=== PATIENT | male | born 1965 | race Caucasian/White ===

== ENCOUNTER 2020-04-19 01:29 | Emergency (ER) | payer SELFPAY ==
[~2020-04-19] VITALS: Ht 172.7 cm; Wt 80.0 kg
--- NOTE | 2020-04-19 01:47 | NUR ---
PATIENT ESCORTED BY POLICE TO ED ROOM. PATIENT SPEAKING ILLOGICAL SENTENCES AND RAPID SPEECH WITH SOME UNKNOWN WORDS. HE STATES "ZAINA MOYA IS MY COUSIN". AND STATES HE IS RELATED TO MANY OTHER CELEBRITIES. HE ANSWERS SOME QUESTIONS WITH INTERMITTENT UNINTELLIGBLE WORDS. PATIENT REPEATS "THIS COVID IS A JOKE" HE THROWS HIS MASK ON THE BED. PATIENT IS COOPERATIVE AT THIS TIME. DENIES SI AT THIS VERY MOMENT. TELLS ME THAT "YOU CAN CALL THE [facility] AND GET ALL MY RECORDS. A LOT OF THE PSYCHIATRIC MEDICATION MADE ME REALLY SICK AND I CANT HAVE ANY OF THAT. I DONT NEED THE MEDICATIONS THEY WERE GIVING ME BEFORE. I WONT TAKE ANY MEDICATIONS BECAUSE THEY ALL HAVE SIDE EFFECTS AND THATS AGAINST THE LAW". 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 PATIENT DECLINES PROVIDING URINE SAMPLE AT THIS TIME "I DONT HAVE ENOUGH IN ME". CALL [facility] IN REACH. STEADY GAIT WITH AMBULATION. WARM BLANKETS PROVIDED. WILL CONTINUE TO MONITOR. NEEDING SUPERVISION AND WILL MOVE PATIENT TO SUPERVISED ROOM SHORTLY
--- NOTE | 2020-04-19 02:00 | NUR ---
PATIENT MOVED TO SUPERVISED ROOM. 1:1 SITTER IN VIEW OF PATIENT. PATIENT TALKING OUT LOUD TO SELF AND HAVING VISUAL HALLUCINATIONS NOTED BY WAVING HANDS UP IN THE AIR AND "SWIRLING SOMETHING AROUND IN THE AIR". WHEN I PERFORMED PHYSICAL ASSESSMENT AND AUSCULTATED PATIENT'S LUNGS, HE ASKED "DID YOU HEAR ALL OF THEM IN THERE?". I ASKED HIM WHAT HE MEANT AND HE RESPONDED "ALL THE BUGS AND ( INCOMPREHENIBLE ILLOGICAL WORDS) IN THERE. THEY ARE TICKING". I REASSURED PATIENT THAT I DID NOT HEAR THESE THINGS. ALL PERSONAL ITEMS INCLUDING CLOTHING PLACED IN BAG AND IN LOCKED STORAGE CABINET IN ER. PATIENT PLACED IN HOSPITAL GOWN.
[2020-04-19 02:21] LABS: BASOPHILS % (AUTO) 2 % (0-1); EOSINOPHILS % (AUTO) 0 % (1-7); LYMPHOCYTES % (AUTO) 15 % (22-44); MEAN CORPUSCULAR HEMOGLOBIN 30.5 pg (27.5-34.5); MEAN CORPUSCULAR HGB CONC 34.3 g/dL (33.2-36.2); MEAN PLATELET VOLUME 9.6 fL (7.4-10.4); MONOCYTES % (AUTO) 8 % (2-9); NEUTROPHILS % (AUTO) 74 % (42-75); PLATELET COUNT 177 x10^3/uL (130-400); RED BLOOD COUNT 4.88 x10^6/uL (4.38-5.82); RED CELL DISTRIBUTION WIDTH 13.9 % (9.4-14.8)
[2020-04-19 02:28] LABS: ALANINE AMINOTRANSFERASE 296 U/L (12-78); ALBUMIN 4.2 g/dL (3.4-5.0); ANION GAP 5 mmol/L (5-15); CHLORIDE 108 mmol/L (98-107); CREATININE 0.99 mg/dL (0.7-1.3)
[2020-04-19 02:29] LABS: SALICYLATE LEVEL < 1.7 mg/dL (2.8-20.0)
[2020-04-19 02:30] LABS: ALKALINE PHOSPHATASE 83 U/L (45-117); BILIRUBIN,TOTAL 0.8 mg/dL (0.2-1.0); TOTAL PROTEIN 8.1 g/dL (6.4-8.2)
--- NOTE | 2020-04-19 02:57 | NUR ---
PATIENT REQUESTED WATER AFTER I ASKED IF HE COULD PLEASE PROVIDE URINE SAMPLE. WATER PROVIDED
[2020-04-19 02:58] LABS: MD SCAN
[2020-04-19] MEDS ORDERED: ZIPRASIDONE 20 MG INJ IM ONE ×3 (03:08→13:30)
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
--- NOTE | 2020-04-19 04:10 | NUR ---
PATIENT HAD NO ALLERGIC REACTION TO [facility]. I WILL TAKE THIS OUT OF HIS ALLERGIES HE REPORTED TO ME. PATIENT NOT OF SOUND MIND ON ARRIVAL TO ER BUT SINCE PATIENT HAD NOT BEEN TO [facility], ALLERGIES ENTERED PATIENT REPORTED WITH VAGUE EXPLANATION. PATIENT RESTING IN BED WITH BLANKETS OVER BODY AND COVERING FACE. 1:1 SITTING IN VIEW OF PATIENT. PATIENT REMAINS CALM IN ROOM. NO LONGER YELLING/TALKING OUTLOUD TO SELF. SAFETY MAINTAINED. WILL CONTINUE TO MONITOR
--- NOTE | 2020-04-19 05:11 | NUR ---
PATIENT RESTING IN BED IN NAD AND 1:1 SITTER IN VIEW OF PATIENT FOR SAFETY. WILL CONTINUE TO MONITOR.
--- NOTE | 2020-04-19 06:11 | NUR ---
THROUGHPUT RN: PT PACKET FAXED TO [facility] AT THIS TIME.
--- NOTE | 2020-04-19 06:46 | NUR ---
PATIENT WAS ASKED FOR URINE SAMPLE AND PATIENT POLITE AND COOPERATIVE WITH THIS REQUEST. UA AND UTOX SENT TO LAB VIA TUBE SYSTEM. RESTING IN BED. EXTRA WARM BLANKET PROVIDED TO PATIENT. SAFETY MAINTAINED. 1:1 SITTER IN VIEW OF PATIENT FOR SAFETY. WILL CONTINUE TO MONITOR.
--- NOTE | 2020-04-19 07:03 | NUR ---
REPORT GIVEN TO GRIS STEVENSON
--- NOTE | 2020-04-19 07:14 | NUR ---
PT RESTING ON ED GURNEY ON HIS SIDE WITH EYES CLOSED. EVEN RISE AND FALL OF CHEST NOTED. NAD. ALL NEEDS MET AT THIS TIME. ROOM SECURED. PT IN VIEW OF SITTER OUTSIDE ROOM.
[2020-04-19 07:53] LABS: MICROSCOPIC NOT IND
[2020-04-19 08:12] LABS: AMPHETAMINE SCREEN, URINE Negative (Negative); BARBITURATE SCREEN, URINE Negative (Negative); BENZODIAZEPINE SCREEN, URINE Negative (Negative); CANNABINOID SCREEN, URINE Negative (Negative); COCAINE SCREEN, URINE Negative (Negative); METHADONE SCREEN, URINE Negative (Negative); OPIATE SCREEN, URINE Negative (Negative)
[2020-04-19 08:45] VITALS: BP 105/69
--- NOTE | 2020-04-19 08:49 | NUR ---
PT BREAKFAST DELIVERED. PT VSS. PT DENIES ANY PHYSICAL COMPLAINT. PT COOPERATIVE AND POLITE.
--- NOTE | 2020-04-19 12:57 | NUR ---
LUNCH TRAY DELIVERED. NAD. ALL NEEDS MET AT THIS TIME.
== END 2020-04-19 15:46 ==
LOC: ED 01:48
DX: F20.0 Paranoid schizophrenia (principal); R45.851 Suicidal ideations; Z88.0 Allergy status to penicillin
CPT/HCPCS: 36415; 80053; 80299; 80307; 80320; 80329; 81003; 85025; 99285; J3486; G0480

== ENCOUNTER 2020-05-11 16:46 | Emergency (ER) | payer SELFPAY ==
[~2020-05-11] VITALS: Ht 172.7 cm; Wt 125.0 kg
--- NOTE | 2020-05-11 16:56 | NUR ---
PATIENT BIB EMS WITH CHIEF C/O DEPRESSION, BUT NO PLAN OR ATTEMPT. PATIENT DENIES ETOH OR DRUG USE TODAY, REPORTS TO EMS THAT HE HAS NOT EATEN OR DRANK X2 DAYS. BLOOD GLUCOSE EN ROUTE 116, VSS EN ROUTE PER EMS. UPON ASSESSMENT PATIENT DENIES SI, VSS, BELONINGS TAKEN AND LOCKED IN CABINET, PATIENT IS RAMBLING ABOUT MULTIPLE THINGS, GOES OFF ON TANGENTS.
--- NOTE | 2020-05-11 17:27 | NUR ---
RECEIVED REPORT FROM GRAHAM VASQUEZ. PT RESTING ON GURTRACY. NADN. PERSONAL BELONGINGS (1 OF 1) PLACED IN SECURE LOCKER. ROOM PARTIALLY SECURED PT REMAINS ON MONITORS. SITTER AT BEDSIDE.
--- NOTE | 2020-05-11 17:42 | NUR ---
PT PROVIDED W/ SANDWICH.
[2020-05-11 18:01] VITALS: BP 120/57
--- NOTE | 2020-05-11 18:02 | NUR ---
PT CONTINUES TO DENY SI/HI. PT PROVIDED W/ PERSONAL BELONGINGS.
--- NOTE | 2020-05-11 18:15 | NUR ---
PT REFUSING TO ET DRESSED FOR DISCHARGE. SECURITY BROUGHT TO BEDSIDE FOR ASSISTANCE IN GETTING PT DRESSED. PROVIDED W/ BUS PASS.
== END 2020-05-11 18:30 | disposition home or self-care (01) ==
LOC: ED 18:00
DX: F20.89 Other schizophrenia (principal); M79.10 Myalgia, unspecified site
CPT/HCPCS: 99283

== ENCOUNTER 2020-11-10 21:54 | Emergency (ER) | payer MEDICARE, MEDICAID ==
[~2020-11-10] VITALS: Ht 167.6 cm; Wt 80.0 kg
[2020-11-10 22:20] VITALS: BP 114/60
--- NOTE | 2020-11-10 22:34 | NUR ---
DC EDUCATION PROVIDED, PT DEMONSTRATES UNDERSTANDING. PT AMBULATED STEAIDLY TO DC W RN. PROVIDED TAXI VOUCHER FOR SAFE DC TO [facility]
== END 2020-11-10 22:35 | disposition home or self-care (01) ==
LOC: ED 22:29
DX: Z00.00 Encounter for general adult medical examination without abnormal findings (principal); Z72.9 Problem related to lifestyle, unspecified; F17.210 Nicotine dependence, cigarettes, uncomplicated
CPT/HCPCS: 99406

== ENCOUNTER 2020-11-15 17:22 | Emergency (ER) | payer MEDICARE, MEDICAID ==
[~2020-11-15] VITALS: Ht 172.7 cm; Wt 86.8 kg
--- NOTE | 2020-11-15 17:33 | NUR ---
SKILLS TRAINER: [id number]
[2020-11-15 17:38] VITALS: BP 131/97
[2020-11-15] MEDS ORDERED: OLANZAPINE 5 MG TABLET PO ONE (18:30)
--- NOTE | 2020-11-15 18:36 | NUR ---
patient given and ate all of dinner. he has a flat affect. he states si and plan was to jump into traffic. patient has a sunburn, is homeless. took two bags of belongings and locked in locker, gowned, objects of harm removed
[2020-11-15] MEDS ORDERED: OLANZAPINE 10 MG TABLET ONE (18:44)
[2020-11-15 18:46] LABS: BASOPHILS % (AUTO) 0 % (0-1); EOSINOPHILS % (AUTO) 1 % (1-7); LYMPHOCYTES % (AUTO) 13 % (22-44); MEAN CORPUSCULAR HEMOGLOBIN 30.8 pg (27.5-34.5); MEAN CORPUSCULAR HGB CONC 34.7 g/dL (33.2-36.2); MEAN PLATELET VOLUME 9.4 fL (7.4-10.4); MONOCYTES % (AUTO) 9 % (2-9); NEUTROPHILS % (AUTO) 78 % (42-75); PLATELET COUNT 263 x10^3/uL (130-400); RED BLOOD COUNT 5.23 x10^6/uL (4.38-5.82); RED CELL DISTRIBUTION WIDTH 14.3 % (9.4-14.8)
[2020-11-15] MEDS ORDERED: OLANZAPINE 5 MG TABLET ONE (18:48)
--- NOTE | 2020-11-15 18:54 | NUR ---
report to DARWIN STEVENSON
[2020-11-15 18:57] LABS: ALBUMIN 3.9 g/dL (3.4-5.0); ANION GAP 5 mmol/L (5-15); CALCIUM 9.6 mg/dL (8.5-10.1); CHLORIDE 107 mmol/L (98-107); SALICYLATE LEVEL < 1.7 mg/dL (2.8-20.0)
--- NOTE | 2020-11-15 18:57 | NUR ---
Report received from GRAHAM Balderrama. This RN to assume care. Patient resting in [facility] with no complaints. Patient calm and cooperative. Patient to be moved to a secured room after clean. Sitter outside and belongings locked in cabinet.
[2020-11-15 19:06] LABS: ALANINE AMINOTRANSFERASE 54 U/L (12-78); ALKALINE PHOSPHATASE 84 U/L (45-117); BILIRUBIN,TOTAL 1.4 mg/dL (0.2-1.0); CREATININE 1.05 mg/dL (0.7-1.3); TOTAL PROTEIN 8.4 g/dL (6.4-8.2)
--- NOTE | 2020-11-15 20:33 | NUR ---
Discharge instructions given with referral. All questions and concerns addressed. Patient ambulatory with a steady gait. Belongings with patient.
== END 2020-11-15 20:49 | disposition home or self-care (01) ==
LOC: ED 20:40
DX: F32.1 Major depressive disorder, single episode, moderate (principal); Z72.9 Problem related to lifestyle, unspecified; R45.851 Suicidal ideations; E11.9 Type 2 diabetes mellitus without complications; F17.200 Nicotine dependence, unspecified, uncomplicated
CPT/HCPCS: 36415; 80053; 80299; 80320; 80329; 85025; 99283; G0480